=== PATIENT | male | born 1935 | race Caucasian/White ===

== ENCOUNTER → 2016-05-10 | Day surgery (SDC) | payer MEDICARE, BC ==
[~2016-05-10] MED LIST: Acetaminophen TAB* 325 MG PO PRN; Buffered Lidocaine 1% SYR 3ML* 3 ML/SYR SYRINGE INTRADERM ONE; Buffered Lidocaine 1% SYR 3ML* 3 ML/SYR SYRINGE ONE; Cyclopentolate 1% OPTH.SOL* 2 ML BTL ONE; Flurbiprofen 0.03% OPTH.SOL* 2.5 ML BTL ONE; Lidocaine 1% MPF* 2 ML VIAL ONE; Lidocaine 2% EPI 1:200000 MPF* 20 ML VIAL ONE; Midazolam* 1 MG/ML 2 ML VIAL (2 MG) ONE; Neomycin/Polymy/Dex OPTH.SUSP* MAXITROL 0.1% 5 ML ONE; Phenylephrine 2.5% OPTH.SOL* 2 ML BTL ONE; Povidone Iodine 5% OPTH* 30 ML BTL ONE; Proparacaine 0.5% OPHTH.SOL* 15 ML BTL ONE; acetaZOLAMIDE TAB* 250 MG ONE
[2016-05-10 11:18] VITALS: BP 115/61
--- NOTE | 2016-05-10 13:09 | OP ---
DATE OF OPERATION: 05/10/2016 - [facility] DATE OF : 1935. SURGEON: Guicho Lao M.D. PREOPERATIVE DIAGNOSIS: Cataract left eye. POSTOPERATIVE DIAGNOSIS: Cataract left eye. OPERATIVE PROCEDURE: Phacoemulsification left eye with IOL. DESCRIPTION OF PROCEDURE: The patient was brought to the operating room after being given 1/2% Alcaine with epinephrine drops in the preoperative area. The eye was prepped and draped in the usual sterile fashion. Sterile drape and eyelid speculum were placed. Again, topical 1/2% Alcaine with epinephrine was given. A paracentesis incision was made at the 3 o'clock position with the No.75 blade. Clear cornea incision 2.2 x 2.2-mm was created at the 6 o'clock position starting at the anterior limbus using the 2.2-mm keratome. The anterior chamber was irrigated with 0.4 mL of 1% non-preservative intracameral lidocaine and filled with DisCoVisc. A capsulorrhexis was completed using the cystotome and the Utrata forceps. Hydrodissection was performed with balanced salt solution. The lens nucleus was removed with the Phacoemulsification handpiece without incident. Cortex was removed with the irrigation-aspiration handpiece. The capsular bag was re-inflated using DisCoVisc and an [id number] implant was inserted with the shooter. The irrigation-aspiration handpiece was used to remove all residual DisCoVisc. The eye was refilled with balanced salt solution and the wound checked and found to be watertight. Topical Maxitrol drops were given. [id number]/[facility] #: [id number] [facility]
== END | disposition home or self-care (01) ==
LOC: OREAST 07:45
PROVIDERS: ATTEND Specialist
DX: H25.812 Combined forms of age-related cataract, left eye (principal); H18.423 Band keratopathy, bilateral; H35.371 Puckering of macula, right eye; I48.91 Unspecified atrial fibrillation; I34.8 Other nonrheumatic mitral valve disorders
CPT/HCPCS: A9270-GY; J2250; V2632

== ENCOUNTER 2016-12-12 07:36 | Inpatient (IN) | payer MEDICARE, BC ==
--- NOTE | 2016-11-29 12:01 | HP ---
HISTORY AND PHYSICAL: DATE OF ADMISSION/SURGERY: 12/12/16 DATE OF OFFICE VISIT: 11/29/16 SURGEON: Angélica Nazario MD * (DICTATED BY TG GUTIERREZ) PROCEDURE: Right total hip arthroplasty. CHIEF COMPLAINT: Right hip pain. HISTORY OF PRESENT ILLNESS: Mr. Mason has continued complaints of right hip pain secondary to advanced arthritis. He has failed conservative management, has elected to proceed with a right total hip arthroplasty, which is scheduled for 12/12/[address] Nazario. PAST MEDICAL HISTORY: A-Fib and a mild mitral valve murmur. PAST SURGICAL HISTORY: Tonsillectomy, teeth extraction, cataract removal. CURRENT MEDICATIONS: 1. Diltiazem 240 mg every day. 2. Nasal saline spray. 3. Colace. 5. Pretz nasal spray. 6. Calcium carbonate 600 mg daily. 7. Aspirin 325 daily. 8. Glucosamine/chondroitin. 9. Ponaris emulsion twice a day. 10. Advil 200 mg as needed. 11. Daily multivitamin. 12. Metamucil as needed. 13. Vitamin C 500 mg daily. ALLERGIES: AMOXICILLIN, BETA BLOCKERS, LEVAQUIN and DIGOXIN. FAMILY HISTORY: Lung cancer. SOCIAL HISTORY: This is an 81-year-old gentleman lives with his . He does not smoke or use drugs. He uses rare alcohol. REVIEW OF SYSTEMS: A complete 14-point review of systems was reviewed with the patient. It is all negative or noncontributory. PHYSICAL EXAMINATION GENERAL: He is well developed, well nourished, in no acute distress. VITAL SIGNS: He stands 5 feet 5 inches tall, weighs 145 pounds. His blood pressure is 123/76, his heart rate 81. HEENT: Normocephalic, atraumatic. NECK: Supple. No palpable lymph nodes. PULMONARY: Lungs are clear to auscultation bilaterally. CARDIO: Regular rate and rhythm. Strong S1, S2. ABDOMEN: Soft, nontender, nondistended. NEUROLOGICAL: He is alert and oriented x3. Cranial nerves II through XII are intact. MUSCULOSKELETAL: Right lower extremity, skin is intact. There are no open wounds or abrasions. He has decreased range of motion with internal and external rotation of the right hip and he walks with an antalgic type gait favoring his right leg. His lower extremity muscle group strengths are intact at 5/5. He has 2+ dorsalis pedis pulses. Intact sensation. ASSESSMENT AND PLAN: Mr. Mason is an 81-year-old gentleman with complaints of right hip pain secondary to advanced osteoarthritis. He has failed conservative management, has elected to proceed with right total hip arthroplasty, which is scheduled for 12/12/[address] Nazario has discussed the risks and benefits of the surgery at today's visits. All of his questions were answered. Coumadin and Percocet were sent to his pharmacy today for postoperative pain control and DVT prophylaxis. He will see Dr. Nazario back in 2 weeks after the surgery. TG GUTIERREZ [id number]/[facility] #: [id number] MTDD
[~2016-12-12 07:36] MED LIST changes: -Acetaminophen TAB* 325 MG PO PRN; +Buffered Lidocaine 0.9% SYRIN* 5 ML/SYR SYRINGE INTRADERM ONE; -Buffered Lidocaine 1% SYR 3ML* 3 ML/SYR SYRINGE INTRADERM ONE; -Buffered Lidocaine 1% SYR 3ML* 3 ML/SYR SYRINGE ONE; -Cyclopentolate 1% OPTH.SOL* 2 ML BTL ONE; +Famotidine IV* 10 MG/ML 2 ML (20 mg) IV ONE; -Flurbiprofen 0.03% OPTH.SOL* 2.5 ML BTL ONE; -Lidocaine 1% MPF* 2 ML VIAL ONE; -Lidocaine 2% EPI 1:200000 MPF* 20 ML VIAL ONE; -Midazolam* 1 MG/ML 2 ML VIAL (2 MG) ONE; -Neomycin/Polymy/Dex OPTH.SUSP* MAXITROL 0.1% 5 ML ONE; +PROCHLORPERAZINE INJ 5 MG/ML 2 ML VIAL IV PRN; -Phenylephrine 2.5% OPTH.SOL* 2 ML BTL ONE; -Povidone Iodine 5% OPTH* 30 ML BTL ONE; -Proparacaine 0.5% OPHTH.SOL* 15 ML BTL ONE; -acetaZOLAMIDE TAB* 250 MG ONE; +fentaNYL* 50 MCG/ML 2 ML VIAL (100 MCG VIAL) IV PRN; +oxyCODONE/Acetamin 5/325 MG* TAB PO PRN
[2016-12-12] MEDS ORDERED: Famotidine IV* 10 MG/ML 2 ML (20 mg) ONE (08:07)
[2016-12-12] MEDS ORDERED: Clindamycin 900 MG IVPREMIX(* 900 MG/50 ML SDV IV ONE (08:07)
[2016-12-12] MEDS ORDERED: Buffered Lidocaine 0.9% SYRIN* 5 ML/SYR SYRINGE ONE (08:08)
[2016-12-12] MEDS ORDERED: KETAMINE HCL* 50 MG/ML 10 ML VIAL ONE (08:54)
[2016-12-12] MEDS ORDERED: Midazolam* 1 MG/ML 5 ML VIAL (5 MG) ONE (08:54)
[2016-12-12] MEDS ORDERED: Atracurium* 10 MG/ML 10 ML VIAL ONE (08:54)
[2016-12-12] MEDS ORDERED: fentaNYL* 50 MCG/ML 2 ML VIAL (100 MCG VIAL) ONE (08:54)
[2016-12-12] MEDS ORDERED: Morphine INJ* 10 MG/ML 1 ML SYRINGE ONE (10:44)
[2016-12-12] MEDS ORDERED: Bupivacaine 0.5% SDV PF* 30 ML VIAL ONE (11:12)
[2016-12-12] MEDS ORDERED: Dexamethasone IV* 4 MG/ML 1 ML (4 MG) ONE (12:33)
[2016-12-12] MEDS ORDERED: Ondansetron INJ* 2 MG/ML VIAL ONE (12:33)
[2016-12-12] MEDS ORDERED: Propofol* 10 MG/ML 20 ML BTL IV PUSH ONE (12:33)
[2016-12-12] MEDS ORDERED: Phenylephrine INJ* 10 MG/ML 1 ML VIAL (10 MG) ONE (12:33)
[2016-12-12] MEDS ORDERED: Lidocaine 2% PF * 5 ML VIAL ONE (12:33)
[2016-12-12] MEDS ORDERED: diPHENhydraMINE PO* 25 MG PO PRN (12:39)
[2016-12-12] MEDS ORDERED: oxyCODONE TAB* 5 MG TAB PO PRN (12:39)
[2016-12-12] MEDS ORDERED: diPHENhydraMINE IV* 50 MG/ML 1 ml VIAL (BENADRYL) IV PRN (12:39)
[2016-12-12] MEDS ORDERED: Ondansetron TAB* 4 MG PO PRN (12:39)
[2016-12-12] MEDS ORDERED: Ondansetron INJ* 2 MG/ML VIAL IV PRN (12:39)
[2016-12-12] MEDS ORDERED: Morphine INJ* 10 MG/ML 1 ML SYRINGE IV PRN (12:39)
[2016-12-12] MEDS ORDERED: Polyethylene Glycol 3350* 17 GM PACKET PO PRN (12:45)
[2016-12-12] MEDS ORDERED: Bisacodyl SUPP* 10 MG SUPP PR PRN (12:45)
[2016-12-12] MEDS ORDERED: Oxymetazoline 0.05% NASAL SPR* 15 ML BTL BOTH NARES PRN (12:47)
[2016-12-12] MEDS ORDERED: oxyCODONE/Acetamin 5/325 MG* TAB PO PRN (12:53)
[2016-12-12] MEDS ORDERED: ceFAZolin 1 GM VIAL(*) 1 GM in NS 0.9% 50 ML* 50 ML IVPB SCH (13:00)
--- NOTE | 2016-12-12 13:28 | RAD ---
INDICATION: Right hip arthroplasty COMPARISON: October 26, 2016 TECHNIQUE: AP portable view of the right hip is submitted FINDINGS: There is initiation of right hip arthroplasty with placement of a femoral component for sizing. IMPRESSION: OPERATIVE CONTROL FILMS ARE SUBMITTED
[2016-12-12] MEDS ORDERED: Morphine INJ* 4 MG/ML 1 ML SYRINGE ONE (13:42)
[2016-12-12] MEDS ORDERED: oxyCODONE/Acetamin 5/325 MG* TAB ONE (13:42)
[2016-12-12] MEDS: Morphine INJ* 2 MG/ML 1 ML SYRINGE IV PRN ×2 (13:45→13:53)
--- NOTE | 2016-12-12 15:49 | RAD ---
Indication: Right hip replacement. 2 views of the right hip and an AP view the pelvis demonstrates right hip bipolar arthroplasty in satisfactory position. IMPRESSION: Postoperative changes with right hip replacement in satisfactory position.
--- NOTE | 2016-12-12 16:53 | CONS ---
CC: Dr. Crespo; Dr. Nazario * CONSULTATION REPORT: DATE OF CONSULT: 12/12/16 PRIMARY CARE PROVIDER: Dr. Crespo. ATTENDING PHYSICIAN WHILE IN THE HOSPITAL: Sharon Boo DO (report dictated by Bong Taylor NP). REQUESTING PHYSICIAN FOR CONSULT: Dr. Nazario. REASON FOR MEDICAL CONSULTATION: Evaluation and medical management of comorbid medical conditions. HISTORY OF PRESENT ILLNESS: I refer you to Dr. Nazario's H and P for further details. In short, Mr. Mason is an 81-year-old male patient who for some time has been dealing with right hip pain failing conservative therapy. He was evaluated by Dr. Nazario. Because the conservative therapy had failed, it was felt that he might benefit from an elective total hip replacement which he underwent today. He does carry though a history of mitral regurgitation and a history of atrial fibrillation. Because of this, we were asked to evaluate in consult. He is evaluated in the postoperative setting. He does not appear to be in any acute distress. He says he is feeling well. He denies having any chest pain. He denies having any abdominal pain. He says that he does not feel nauseated. He says he feels a little drowsy but no lightheaded or dizzy. He says he does have pain particularly in the right buttock and in the right hip but it is controlled with his pain medications. Again, because of his medical comorbid conditions, we were asked to evaluate in consult. PAST MEDICAL HISTORY: Significant for: 1. AFib. 2. Mitral regurgitation. 3. Hyperlipidemia. 4. BPH. 5. GERD. 6. Childhood asthma. PAST SURGICAL HISTORY: 1. He has had tonsillectomy. 2. Cataract extraction. 3. Right total hip replacement. MEDICATIONS: His home meds according to the preop list include: 1. Ponaris 1 dose both nares q.p.m. 2. Afrin 1 spray both nares daily as needed. 3. Nasal wash 1 solution 1 spray both nares b.i.d. 4. Multivitamin 1 tablet daily. 5. Vicks cough drops 1 lozenge p.o. 4 times a day. 6. Advil 400 mg p.o. daily as needed. 7. Glycerine 1 spray both nares at bedtime. 8. Glucosamine and chondroitin 2 tablets p.o. q.p.m. 9. Colace 100 mg p.o. q.p.m. 10. Diltiazem 240 mg p.o. daily. 11. Vicks VapoRub 1 application topically at bedtime. 12. Aspirin 325 mg p.o. daily. 13. Vitamin C 500 mg p.o. daily. ALLERGIES TO MEDICATIONS: Includes AMPICILLIN, LEVAQUIN, BETA-BLOCKERS, and DIGOXIN. FAMILY HISTORY: Mother had history of CVA at the age of 97. Father had a history of emphysema. SOCIAL HISTORY: She does not smoke, does not drink. Surrogate decision maker is his . REVIEW OF SYSTEMS: There is no documented fever. He denied having any significant weight change. There was no double vision. He denies having any ear discharge. There is no rhinorrhea. No sore throat, no thyroid enlargement. Denies having any chest pain. There is no orthopnea. No nocturnal dyspnea. There is no abdominal pain. There is no nausea, no vomiting. No dysuria, no frequency. No seizure. No loss of consciousness, no pruritus, no skin ulcerations. Review of 14 systems was completed, all others negative. PHYSICAL EXAMINATION: Vital Signs: Reveals blood pressure 135/75, pulse 61, respirations 18, O2 sat 100%, temperature 97.3. General: At this time, Mr. Mason is an 81-year-old male patient. He is sitting in the PACU bed. He does not appear to be in any acute distress. HEENT: Head atraumatic, normocephalic. Eyes: EOMs are intact. Sclerae anicteric. Neck: Supple. Throat: Oral mucosa appears to be moist. No oropharyngeal erythema. Heart: Sounds S1, S2. Irregularly irregular rate. No murmurs, rubs, or gallops. Lungs : Clear to auscultation bilaterally. No wheezes, rales, or rhonchi. Abdomen: Soft, flat. Bowel sounds hypoactive. Extremities: Pulses 2+ throughout. Distal CSM checks are intact to the right lower extremity. He is able to move the upper extremities with 5/5 strength. Neurologically, he is awake, he is alert. He is drowsy. Director Of Restaurants were equal. Tongue midline. No gross focal deficits. Speech is clear. Skin: Intact with the exception to the left hip, he does have an incision which is covered with an ABD which is clean, dry, and intact. DIAGNOSTIC STUDIES/LAB DATA: His labs preoperatively revealed WBC of 7.3, RBC of 4.57, hemoglobin 15.1, hematocrit of 44, platelet count of 175,000. INR was 0.91. Sodium 138, potassium 4.5, chloride 102, bicarb 31, BUN 18, creatinine 1.21, glucose 99. He had a preoperative echo which showed an EF of 60% to 65%. Old medical records were reviewed. ASSESSMENT AND PLAN: Mr. Mason is an 81-year-old male patient coming into the orthopedic services today for right total hip arthroplasty. We are asked to evaluate in consult. Recommendations at this point are: 1. Status post right total hip replacement. I will defer the management of this to Dr. Manning and her team. 2. Atrial fibrillation. Rate appears to be controlled. He is not on anticoagulation for this. He has been taking an aspirin. He will be placed on warfarin postoperatively, this should be acceptable. He has a low MARGARET score. 3. History of asthma, not an active issue. We will monitor. 4. History of mitral regurgitation. He will follow up with his primary. It does not appear to be active issue currently. We will monitor. 5. DVT prophylaxis. We will defer to the primary team. 6. Fluids, electrolytes, nutrition. He can have a regular diet. 7. Hyperlipidemia. Continue lifestyle modifications. 8. Code status. He is a full code status. TIME SPENT: Time spent on the consult was 60 minutes; greater than half that time was spent [id number] with the patient obtaining my history and physical, other half of the time was spent going over the plan of care with the patient, implementing my plan of care. I discussed the plan of care with my attending, Dr. Boo, she is in agreement. BONG TAYLOR NP [id number]/[facility] #: [id number] GELA
[2016-12-12] MEDS ORDERED: Warfarin TAB(*) 6 MG PO ONE (17:00)
[2016-12-12] MEDS: Clindamycin 600 MG IVPREMIX(* 600 MG/50 ML SDV IV SCH (18:20)
[2016-12-12] MEDS: Docusate CAP* 100 MG PO SCH (23:52)
[2016-12-12] MEDS: Magnesium Hydroxide LIQ* 30 ML UDC PO SCH (23:52)
[2016-12-13] MEDS: Clindamycin 600 MG IVPREMIX(* 600 MG/50 ML SDV IV SCH ×2 (02:40→10:36)
[2016-12-13] MEDS: oxyCODONE/Acetamin 5/325 MG* TAB PO PRN ×3 (04:25→22:13)
[2016-12-13 06:42] LABS: Hematocrit 34 % (42-52); Hemoglobin 11.6 g/dl (14.0-18.0)
[2016-12-13 06:58] LABS: BUN/Creatinine Ratio 13.8 (8-20); Calcium 8.5 mg/dL (8.6-10.3); EGFR African American 83.5 (>60); EGFR Non-African American 64.9 (>60); Potassium 4.2 mmol/L (3.5-5.0)
[2016-12-13] MEDS: Diltiazem CD CAP* 240 MG PO SCH (08:15)
[2016-12-13] MEDS ORDERED: Diltiazem CD CAP* 240 MG PO SCH (09:00)
[2016-12-13] MEDS ORDERED: Influenza VAC *QUAD* 2017-18* 0.5 ML SYRINGE IM ONE (09:00)
--- NOTE | 2016-12-13 09:11 | PN ---
Progress Note - Progress Note Date of Service: 12/13/16 SOAP: Subjective: []Patient seen at bedside, doing well, hip pain minimal. Denies SOB, CP or dizziness. Plans to go home with VNS by end of week. Objective: [] Vital Signs Temp 97.8 F 12/13/16 07:09 Pulse 65 12/13/16 07:09 Resp 16 12/13/16 08:14 BP 116/52 12/13/16 07:09 Pulse Ox 100 12/13/16 07:09 Intake & Output 12/12/16 12/13/16 12/13/16 18:59 06:59 18:59 Intake Total 1999 1886 Output Total 550 1150 Balance 1450 736 Weight 141 lb Intake: IV Fluids 1999 1006 ABX - CLINDAMYCIN 53 LR 1999 953 Oral 880 Output: Ro 350 1150 Estimated Blood Loss 200 Other: # Bowel Movements 0 Laboratory Results - last 24 hr 12/13/16 12/13/16 12/13/16 06:23 06:23 06:23 Hgb 11.6 L Hct 34 L INR (Anticoag Therapy) 1.32 H Sodium 137 Potassium 4.2 Chloride 102 Carbon Dioxide 29 Anion Gap 6 BUN 15 Creatinine 1.09 Est GFR ( Amer) 83.5 Est GFR (Non-Af Amer) 64.9 BUN/Creatinine Ratio 13.8 Glucose 149 H Calcium 8.5 L Right hip dressings are dry and intact, ice on +DF/PF right ankle sensation and circulation intact distally calf non tender and soft Assessment: []s/p right total hip arthroplasty POD #1 Plan: []PT/OT WBAT RLE Coumadin with Lovenox bridge- 6 mg today Home with VNS when goals met
[2016-12-13] MEDS: Multivitamins/Minerals TAB PO SCH (09:49)
[2016-12-13] MEDS: Ascorbic Acid TAB* 500 MG PO SCH (09:49)
[2016-12-13] MEDS: Nasal Wash (NF) 473 ML BTL NASAL SCH (09:49)
[2016-12-13] MEDS: Magnesium Hydroxide LIQ* 30 ML UDC PO SCH ×2 (09:50→22:15)
[2016-12-13] MEDS: Docusate CAP* 100 MG PO SCH ×2 (09:50→22:15)
--- NOTE | 2016-12-13 11:00 | OP ---
DATE OF SURGERY: 12/12/16 - ROOM #350 DATE OF : 35. ATTENDING SURGEON: Angélica Nazario MD. ESC[facility] PATIENTS: TG Garcia. Ms. Wilhelm did help throughout the procedure with preparation of the leg, wound retraction, manipulation of the hip, and wound closure. ANESTHESIOLOGIST: Dr. Herrera. ANESTHESIA: General. PRE-OP DIAGNOSIS: Severe endstage degenerative osteoarthritis of the right hip joint. POST-OP DIAGNOSIS: Severe endstage degenerative osteoarthritis of the right hip joint. OPERATIVE PROCEDURE: Right total hip arthroplasty. COMPLICATIONS: None. ESTIMATED BLOOD LOSS: 350 cc. SPECIMENS: Femoral head and acetabular reaming sent to Pathology. HARDWARE USED: This is uncemented [place] total hip hardware. For the cup, a 56 Tritanium cluster hole shell, 120 mm screw was used. For the liner, a Trident X3 0- degree 36E liner. For the femoral stem, an Accolade TMZF size 3 with 127-degree neck and for the head, a Biolox delta 36, -2.5 ceramic V40 femoral head. BRIEF HISTORY/INDICATIONS: Mr. Mason is an 81-year-old gentleman with years of increasingly severe right hip pain. Radiographs confirmed bone on bone severe endstage arthritis to the hip joint. He failed conservative treatment with antiinflammatories, pain medications, and physical therapy. Due to decreased quality of life and severe pain, he elected to undergo right total hip arthroplasty. Informed consent was obtained from the patient. He understood the risks of surgery included, but were not limited to bleeding, infection, damage to nearby structures, continued pain, need for further surgery, intraoperative fracture, dislocation, leg length discrepancy, stroke, heart attack, blood clot, and . He wished to proceed. INTRAOPERATIVE FINDINGS: Intraoperatively, the patient was noted to have complete loss of cartilage of the femoral head and acetabulum. Inferior acetabulum had significant osteophyte formation. DESCRIPTION OF PROCEDURE: Mr. Mason was identified in the preanesthesia unit. His right lower extremity was marked as the correct operative site. Informed consent was signed and placed in the chart. The patient was taken to the operating room and placed under general anesthesia. A Ro catheter was placed. Right lower extremity has been marked as a corrective operative site. He was placed in the left lateral decubitus position on the peg board with all bony prominences were well padded. Right lower extremity was prepped and draped in the usual sterile fashion. Preop time-out was made to correctly identify the patient, side, and site. Appropriate perioperative antibiotics were given within 1 hour of incision. A standard 12-cm posterior hip incision was made with a 10-blade and carried down to the lateral fascia layer. Lateral fascia layer was incised in line with the skin incision. A Charnley retractor was placed. The piriformis and conjoint tendons were identified. These were elevated off the posterolateral femur using electrocautery and tagged with two #5 Ethibond. Next, electrocautery was used to make a standard posterolateral capsular flap and this was also tagged with two #5 Ethibond. The hip was carefully dislocated. Lesser troch to center of the femoral head measured 50 mm. The oscillating saw was used to make the appropriate femoral neck cut based on preop templating. The femoral head was sent to pathology. The femur was carefully retracted anteriorly. After appropriate placement of retractors, the acetabulum was easily visualized. A long handled knife was used to sharply remove any remaining labrum from the acetabular rim. The acetabulum was sequentially reamed up to a size 55. A good bleeding subchondral bone bed was obtained. A 55 trial had excellent fit. Final implant chosen was a Tritanium hemispherical cluster hole shell 56E. This was impacted into the acetabulum without difficulty. One 20 mm screw was placed in superior posterior quadrant for extra stability. Polyethylene liner Trident X3 0-degree 36E was chosen and this was impacted into the acetabulum without difficulty. Stability of the liner was checked and rechecked and noted to be stable. Some inferior osteophytes were carefully removed from around the acetabulum using a rongeur. Attention was turned next to the femur. Canal finder was used to enter the proximal femur. The femur was sequentially broached up to a size 3. Size 3 had excellent fit and appropriate anteversion. A 127 neck trial was chosen based on templating. A 36, +0 head had lesser troch to center of the femoral head measurement of 56 mm; therefore, a 36, -2.5 head was chosen. The hip was easily reduced and taken through range of motion. The hip was stable in all positions. Soft tissue tension was appropriate and leg lengths were satisfactory. The hip was carefully dislocated. All trials were carefully removed. Final implant chosen was an Accolade TMZF size 3 with a 127-degree neck. This was carefully impacted into the femoral canal without difficulty. A Biolox delta ceramic femoral head 36, -2.5 was chosen. This was impacted onto the femoral neck. Lesser troch to the center of the femoral head measured 52 mm. The hip was carefully reduced and taken through range of motion. The hip was stable in all positions with appropriate soft tissue tension and leg length. The hip was copiously irrigated with sterile saline. Previously tagged capsule and tendons were reapproximated to the posterolateral femur through 2 trochanteric drill holes. The hip was once again copiously irrigated with sterile saline. The fascial layer was reapproximated using interrupted #1 Vicryls. The rest of the incision was closed in a layered fashion using 0 and 2- 0 Vicryl. The skin was closed using running 3-0 Monocryl suture with Dermabond. Sterile Adaptic, 4x4's, and paper tape were used to cover the incision. The patient's anesthesia was reversed without difficulty. He was taken to the PACU in stable condition. Intended weightbearing will be weightbearing as tolerated. Intended DVT prophylaxis will be Coumadin with a Lovenox bridge. [id number]/[facility] #: [id number] GELA
[2016-12-13] MEDS ORDERED: Enoxaparin(*) 30 MG/0.3 ML SYR SUBCUT SCH (13:00)
[2016-12-13] MEDS: Acetaminophen TAB* 325 MG PO PRN (13:01)
[2016-12-13] MEDS ORDERED: Warfarin TAB(*) 6 MG PO SCH (17:00)
--- NOTE | 2016-12-13 19:42 | PN ---
Subjective Date of Service: 12/13/16 Interval History: Seen POD #1 in follow up of medical co-management. Mr. Mason feels well today and denies pain. No post-op chest pain, shortness of breath, nausea, constipation, diarrhea. Family History: Unchanged from Admission Social History: Unchanged from Admission Past Medical History: Unchanged from Admission Objective Active Medications: Acetaminophen (Tylenol Tab*) 650 mg PO Q4H PRN PRN Reason: mild pain or fever Last Admin: 12/13/16 13:01 Dose: 650 mg Ascorbic Acid (Vitamin C Tab*) 500 mg PO DAILY [facility] Last Admin: 12/13/16 09:49 Dose: Not Given Bisacodyl (Dulcolax Supp*) 10 mg [place] DAILY PRN PRN Reason: constipation Diltiazem HCl (Cardizem Cd Cap*) 240 mg PO QAM [facility] Last Admin: 12/13/16 08:15 Dose: 240 mg Diphenhydramine HCl (Benadryl Iv*) 12.5 mg IV Q6H PRN PRN Reason: PRURITIS Diphenhydramine HCl (Benadryl Po*) 25 mg PO Q6H PRN PRN Reason: INSOMNIA Docusate Sodium (Colace Cap*) 100 mg PO BID [facility] Last Admin: 12/13/16 09:50 Dose: 100 mg Enoxaparin Sodium (Lovenox(*)) 30 mg SUBCUT Q24H [facility] Last Admin: 12/13/16 13:02 Dose: 30 mg Lactated Ringer's (Lactated Ringers 1000 Ml Bag*) 1,000 mls @ 100 mls/hr IV PER RATE [facility] Last Admin: 12/13/16 11:49 Dose: 100 mls/hr Lactulose (Lactulose*) 30 ml PO Q6H PRN PRN Reason: constipation Magnesium Hydroxide (Milk Of Magnesia Liq*) 30 ml PO BID [facility] Last Admin: 12/13/16 09:50 Dose: 30 ml Morphine Sulfate (Morphine Inj (Syringe)*) 5 mg IV Q2H PRN PRN Reason: PAIN Multivitamins/Minerals (Theragran/Minerals Tab*) 1 tab PO DAILY [facility] Last Admin: 12/13/16 09:49 Dose: Not Given Ondansetron HCl (Zofran Inj*) 4 mg IV Q6H PRN PRN Reason: nausea Last Admin: 12/12/16 18:24 Dose: 4 mg Ondansetron HCl (Zofran Tab*) 4 mg PO Q6H PRN PRN Reason: NAUSEA Oxycodone HCl (Roxycodone Tab*) 10 mg PO Q4H PRN PRN Reason: breakthru pain Oxycodone/Acetaminophen (Percocet 5/325 Tab*) 1 tab PO Q3H PRN PRN Reason: PAIN - MODERATE Last Admin: 12/13/16 08:14 Dose: 1 tab Oxycodone/Acetaminophen (Percocet 5/325 Tab*) 2 tab PO Q3H PRN PRN Reason: PAIN - MODERATE Oxymetazoline HCl (Afrin 0.05% Nasal [place]*) 1 spray BOTH NARES DAILY PRN PRN Reason: CONGESTION Pharmacy Profile Note (Coumadin Daily Reminder*) 1 note FOLLOW UP 1700 LC Last Admin: 12/13/16 17:08 Dose: 1 note Polyethylene Glycol/Electrolytes (Miralax*) 17 gm PO DAILY PRN PRN Reason: Constipation Thymol/Menthol (Alkalol (Nf)) 1 dose NASAL DAILY LC PRN Reason: Protocol Last Admin: 12/13/16 09:49 Dose: Not Given Vital Signs 12/12/16 12/12/16 12/12/16 20:23 20:35 23:44 Temperature 98.0 F 97.5 F Pulse Rate 73 70 Respiratory 12 12 16 Rate Blood Pressure 128/69 123/68 (mmHg) O2 Sat by Pulse 100 100 Oximetry 12/13/16 12/13/16 12/13/16 03:21 04:25 06:21 Temperature 97.7 F Pulse Rate 63 Respiratory 16 16 16 Rate Blood Pressure 104/47 (mmHg) O2 Sat by Pulse 100 Oximetry 12/13/16 12/13/16 12/13/16 07:09 08:00 08:14 Temperature 97.8 F Pulse Rate 65 Respiratory 16 18 16 Rate Blood Pressure 116/52 (mmHg) O2 Sat by Pulse 100 100 Oximetry 12/13/16 12/13/16 12/13/16 10:14 11:23 15:22 Temperature 98.4 F 98.0 F Pulse Rate 79 61 Respiratory 16 16 13 Rate Blood Pressure 104/53 96/49 (mmHg) O2 Sat by Pulse 99 98 Oximetry 12/13/16 15:27 Temperature Pulse Rate Respiratory Rate Blood Pressure (mmHg) O2 Sat by Pulse 98 Oximetry Oxygen Devices in Use Now: None Appearance: alert, well-appearing Eyes: No Scleral Icterus, PERRLA Ears/Nose/Mouth/Throat: NL Teeth, Lips, Gums, Clear Oropharnyx Neck: NL Appearance and Movements; NL JVP Respiratory: Symmetrical Chest Expansion and Respiratory Effort, Clear to Auscultation Cardiovascular: NL Sounds; No Murmurs; No JVD, RRR Abdominal: NL Sounds; No Tenderness; No Distention, No Hepatosplenomegaly Lymphatic: No Cervical Adenopathy Extremities: No Edema Skin: No Rash or Ulcers Neurological: Alert and Oriented x 3 Result Diagrams: 12/13/16 06:23 12/13/16 06:23 Assess/Plan/Problems-Billing Assessment: 1. POD #1 R total hip arthroplasty No post-op chest pain, tolerating pain, discussed avoiding NSAIDs while on AC 2. Afib [id number], so it is appropriate that he takes on aspirin at home. ASA can be held while on therapeutic AC. When resumed, only ASA 81mg is indicated, no need for 325mg. I discussed this with Mr. Mason. 3. Mitral regurgitation No evidence of volume overload.
[2016-12-14 06:54] LABS: Hematocrit 31 % (42-52); Hemoglobin 10.7 g/dl (14.0-18.0)
[2016-12-14] MEDS: Magnesium Hydroxide LIQ* 30 ML UDC PO SCH ×2 (08:43→20:00)
[2016-12-14] MEDS: Docusate CAP* 100 MG PO SCH ×2 (08:44→20:00)
[2016-12-14] MEDS: Diltiazem CD CAP* 240 MG PO SCH (08:44)
[2016-12-14] MEDS: Nasal Wash (NF) 473 ML BTL NASAL SCH (08:47)
[2016-12-14] MEDS: Multivitamins/Minerals TAB PO SCH (08:47)
[2016-12-14] MEDS: Ascorbic Acid TAB* 500 MG PO SCH (08:47)
--- NOTE | 2016-12-14 09:45 | PN ---
Progress Note - Progress Note Date of Service: 12/14/16 SOAP: Subjective: []Patient is seen at bedside, feeling "wiped out" from the Percocet he took a little while ago. He plans on going home tomorrow. Objective: [] Vital Signs Temp 97.3 F 12/14/16 07:22 Pulse 69 12/14/16 08:28 Resp 12 12/14/16 08:28 BP 113/56 12/14/16 08:28 Pulse Ox 99 12/14/16 08:28 Intake & Output 12/13/16 12/14/16 12/14/16 18:59 06:59 18:59 Intake Total 2046 1684 360 Output Total 875 575 200 Balance 1171 1109 160 Intake: IV Fluids 1071 964 ABX - CLINDAMYCIN 110 LR 961 964 Oral 975 720 360 Output: Urine 300 575 200 Ro 575 Other: # Bowel Movements 0 Laboratory Results - last 24 hr 12/14/16 12/14/16 06:05 06:05 Hgb 10.7 L Hct 31 L INR (Anticoag Therapy) 2.41 H Right hip dressing change, spotty ecchymosis around incision, minimal edema, wound benign new 4x4s and tape applied calf NT and soft +DF/PF right ankle sensation intact Assessment: []s/p Right total hip arthrplasty POD #2 Plan: []PT/OT WBAT Hold Coumadin today Home with VNS 12/15
[2016-12-14] MEDS: Acetaminophen TAB* 325 MG PO PRN ×3 (12:39→21:44)
--- NOTE | 2016-12-14 15:43 | PN ---
Subjective Date of Service: 12/14/16 Interval History: This is an 81 yo gentleman with afib and MR who is s/p YARED with Dr Nazario. Hospitalist group has been consulted for medical management. Patient reports that he had too much pain medication this am and was somewhat confused, but that has since resolved. Pain is well controlled. No n/v. No CP or SOB Objective Active Medications: Acetaminophen (Tylenol Tab*) 650 mg PO Q4H PRN PRN Reason: mild pain or fever Last Admin: 12/14/16 12:39 Dose: 650 mg Ascorbic Acid (Vitamin C Tab*) 500 mg PO DAILY [facility] Last Admin: 12/14/16 08:47 Dose: Not Given Bisacodyl (Dulcolax Supp*) 10 mg NM DAILY PRN PRN Reason: constipation Diltiazem HCl (Cardizem Cd Cap*) 240 mg PO QAM [facility] Last Admin: 12/14/16 08:44 Dose: 240 mg Diphenhydramine HCl (Benadryl Iv*) 12.5 mg IV Q6H PRN PRN Reason: PRURITIS Diphenhydramine HCl (Benadryl Po*) 25 mg PO Q6H PRN PRN Reason: INSOMNIA Docusate Sodium (Colace Cap*) 100 mg PO BID [facility] Last Admin: 12/14/16 08:44 Dose: 100 mg Lactulose (Lactulose*) 30 ml PO Q6H PRN PRN Reason: constipation Last Admin: 12/14/16 15:20 Dose: 30 ml Magnesium Hydroxide (Milk Of Magnesia Liq*) 30 ml PO BID [facility] Last Admin: 12/14/16 08:43 Dose: 30 ml Morphine Sulfate (Morphine Inj (Syringe)*) 5 mg IV Q2H PRN PRN Reason: PAIN Multivitamins/Minerals (Theragran/Minerals Tab*) 1 tab PO DAILY [facility] Last Admin: 12/14/16 08:47 Dose: Not Given Ondansetron HCl (Zofran Inj*) 4 mg IV Q6H PRN PRN Reason: nausea Last Admin: 12/12/16 18:24 Dose: 4 mg Ondansetron HCl (Zofran Tab*) 4 mg PO Q6H PRN PRN Reason: NAUSEA Oxycodone HCl (Roxycodone Tab*) 10 mg PO Q4H PRN PRN Reason: breakthru pain Oxycodone/Acetaminophen (Percocet 5/325 Tab*) 1 tab PO Q3H PRN PRN Reason: PAIN - MODERATE Last Admin: 12/13/16 22:13 Dose: 1 tab Oxycodone/Acetaminophen (Percocet 5/325 Tab*) 2 tab PO Q3H PRN PRN Reason: PAIN - MODERATE Last Admin: 12/14/16 07:44 Dose: 2 tab Oxymetazoline HCl (Afrin 0.05% Nasal [place]*) 1 spray BOTH NARES DAILY PRN PRN Reason: CONGESTION Pharmacy Profile Note (Coumadin Daily Reminder*) 1 note FOLLOW UP 1700 LC Last Admin: 12/13/16 17:08 Dose: 1 note Polyethylene Glycol/Electrolytes (Miralax*) 17 gm PO DAILY PRN PRN Reason: Constipation Thymol/Menthol (Alkalol (Nf)) 1 dose NASAL DAILY LC PRN Reason: Protocol Last Admin: 12/14/16 08:47 Dose: Not Given Vital Signs: Temp Pulse Resp BP Pulse Ox 98.3 F 73 14 118/61 100 12/14/16 12:06 12/14/16 12:06 12/14/16 12:06 12/14/16 12:06 12/14/16 12:06 Oxygen Devices in Use Now: None Appearance: Well appearing elderly gentleman in NAD, accompanied by his and appears younger than stated age. Respiratory: Symmetrical Chest Expansion and Respiratory Effort, Clear to Auscultation Cardiovascular: NL Sounds; No Murmurs; No JVD, RRR Extremities: No Edema Skin: No Rash or Ulcers Neurological: Alert and Oriented x 3 Result Diagrams: 12/14/16 06:05 12/13/16 06:23 Assess/Plan/Problems-Billing Assessment: This is an 81 yo gentleman with MR and afib who is s/p YARED with Dr Nazario. Hospitalist group has been asked to co-manage medical problems. - Patient Problems (1) S/P total hip arthroplasty Comment: POD #2 Management per ortho (2) Atrial fibrillation Comment: [id number], so it is appropriate that he takes only aspirin at home. ASA can be held while on therapeutic AC. When resumed, only ASA 81mg is indicated, no need for 325mg. (3) Mitral regurgitation (4) Full code status (5) DVT prophylaxis Comment: Coumadin per ortho Status and Disposition: Dispo per ortho, plans for dc home tomorrow
[2016-12-15] MEDS: Acetaminophen TAB* 325 MG PO PRN ×2 (02:10→08:29)
[2016-12-15 08:12] LABS: Hematocrit 34 % (42-52); Hemoglobin 11.5 g/dl (14.0-18.0)
[2016-12-15] MEDS: Nasal Wash (NF) 473 ML BTL NASAL SCH (08:21)
[2016-12-15] MEDS: Diltiazem CD CAP* 240 MG PO SCH (08:29)
[2016-12-15] MEDS: Multivitamins/Minerals TAB PO SCH (08:29)
[2016-12-15] MEDS: Ascorbic Acid TAB* 500 MG PO SCH (08:41)
[2016-12-15] MEDS: Magnesium Hydroxide LIQ* 30 ML UDC PO SCH (08:41)
[2016-12-15] MEDS: Docusate CAP* 100 MG PO SCH (08:41)
--- NOTE | 2016-12-15 09:55 | PN ---
Progress Note - Progress Note Date of Service: 12/15/16 SOAP: Subjective: []Patient seen at bedside, present. He is feeling well and feels ready for discharge this afternoon. Objective: [] Vital Signs Temp 98.4 F 12/15/16 07:39 Pulse 74 12/15/16 07:39 Resp 18 12/15/16 07:39 BP 137/54 12/15/16 07:39 Pulse Ox 100 12/15/16 07:39 Intake & Output 12/14/16 12/15/16 12/15/16 18:59 06:59 18:59 Intake Total 1060 980 Output Total 400 750 Balance 660 230 Intake: Oral 1060 980 Output: Urine 400 750 Other: Estimated Void Small Medium # Bowel Movements 1 2 Estimated Stool Amount Medium Medium # Voids 2 1 Laboratory Results - last 24 hr 12/15/16 12/15/16 07:11 07:11 Hgb 11.5 L Hct 34 L INR (Anticoag Therapy) 2.00 H Right hip incision is benign calf NT and soft +DF/Pf right ankle NVI distally Assessment: []s/p RTH POD #3 Plan: []PT/OT WBAT 2 mg Coumadin today before discharge Follow up as scheduled 10-[address] Nazario
[2016-12-15 12:38] VITALS: BP 120/54
--- NOTE | 2016-12-15 16:13 | PN ---
Hospitalist Progress Note Patient was discharged earlier today by orthopedic group. Nursing notes, vitals and labs reviewed prior to dc. Recommend resuming ASA following completion of Coumadin at a dose of 81mg. This has been reviewed with patient. No additional changes to home medications. Vital Signs: Temp Pulse Resp BP Pulse Ox 98.0 F 75 18 120/54 100 12/15/16 12:37 12/15/16 12:37 12/15/16 12:37 12/15/16 12:37 12/15/16 12:37
[2016-12-15] MEDS ORDERED: Warfarin TAB(*) 2 MG PO NR (17:00)
--- NOTE | 2016-12-16 01:19 | DS ---
DISCHARGE SUMMARY: DATE OF ADMISSION: 12/12/16 DATE OF DISCHARGE: 12/15/16 ATTENDING PHYSICIAN: Dr. Angélica Nazario * (DICTATED BY TG TOMLINSON) ADMISSION DIAGNOSIS: Severe end-stage degenerative osteoarthritis, right hip. DISCHARGE DIAGNOSIS: Severe end-stage degenerative osteoarthritis, right hip. SURGERY PERFORMED: Right total hip arthroplasty. HOSPITAL COURSE: The patient is an 81-year-old male with increasingly right severe hip pain. His x-rays revealed [id number] severe degenerative end- stage osteoarthritis. The patient failed conservative management with anti- inflammatories, pain medications, and physical therapy. He elected to proceed with total hip arthroplasty and was taken to the operating room under the care of Dr. Angélica Nazario on the date of 12/12/16. He tolerated the procedure well and left the operating room in stable condition. Postoperatively, he progressed satisfactorily with his physical therapy and occupational therapy goals. He was followed by the medical team as well and had no significant postoperative complications. He progressed nicely and it was felt that he was stable medically and orthopedically for discharge to home with visiting nursing services in place on 12/15/16. CONDITION ON DISCHARGE: His vitals show a temperature of 98.4, pulse 74, respiratory rate 18, O2 sats 100% on room air, blood pressure 137/54. His right hip incision shows no drainage, there is minimal swelling, no evidence of infection. His calf is nontender and soft. He has active dorsiflexion and plantar flexion of his right ankle. His circulation and sensation are intact distally. PLAN: The patient is scheduled for discharge to home with visiting nursing services in place on 12/15/16. The patient is going to have a 2 mg of Coumadin dosed today 12/15/16 before discharge home. I have instructed him to take no Coumadin on Saturday 12/16 and 2 mg of Coumadin on Sunday, 12/17. He will then have a repeat INR blood draw on Sunday with dosages to follow. He will follow up in the office as scheduled in 10 to [address] Nazario and should call the office with increased right hip pain or swelling and he noted drainage, redness, calf pain or swelling, fever, chills. All instructions were reviewed and the patient and his understood. TG TOMLINSON [id number]/[facility] [place] #: [id number] GELA
== END 2016-12-15 13:50 | disposition home health service (06) | DRG 470 ==
LOC: AA 07:36 → SSU 14:54
PROVIDERS: ADMIT Orthopaedic Surgery Adult Reconstructive Orthopaedic Surgery; ATTEND Orthopaedic Surgery Adult Reconstructive Orthopaedic Surgery
PROC: 0SR904A Replacement of Right Hip Joint with Ceramic on Polyethylene Synthetic Substitute, Uncemented, Open Approach (ICD-10-PCS; principal; 2016-12-12 10:15)
PROC: 3E0234Z Introduction of Serum, Toxoid and Vaccine into Muscle, Percutaneous Approach (ICD-10-PCS; 2016-12-13)
DX: M16.11 Unilateral primary osteoarthritis, right hip (principal); I48.91 Unspecified atrial fibrillation; I34.0 Nonrheumatic mitral (valve) insufficiency; N40.0 Benign prostatic hyperplasia without lower urinary tract symptoms; K21.9 Gastro-esophageal reflux disease without esophagitis; E78.5 Hyperlipidemia, unspecified; M25.751 Osteophyte, right hip; J45.909 Unspecified asthma, uncomplicated; Z80.1 Family history of malignant neoplasm of trachea, bronchus and lung; Z72.89 Other problems related to lifestyle; Z98.49 Cataract extraction status, unspecified eye; Z88.1 Allergy status to other antibiotic agents; Z88.8 Allergy status to other drugs, medicaments and biological substances; Z82.3 Family history of stroke; Z82.5 Family history of asthma and other chronic lower respiratory diseases; Z23 Encounter for immunization
CPT/HCPCS: 36415; 80048; 85014; 85018; 85610; 90686; 93005; 94760; A9270-GY; C1713; C1776; J1100; J1650; J2250; J2270; J2405; J2704; J3010

== ENCOUNTER 2017-03-13 08:56 | Emergency (ER) | payer MEDICARE, BC ==
[2017-03-13 09:15] VITALS: BP 135/67
--- NOTE | 2017-03-13 10:37 | UC ---
Neck Pain HPI - HPI Summary HPI Summary: FEVER HEADACHE AND NECK STIFFNESS ( PAIN & NUCHAL RIGIDITY WITH FLEXION) WORSENING SINCE 03/10/17. BEGAN WITH UPPER RESPIRATORY INFECTION ON 02/21/17, SYMPTOMS RESOLVED BUT DEVELOPED BACK PAIN AND LEFT SHOULDER PAIN. NO HAVING CONSTANT NECK PAIN WORSE WITH MOVEMENT. NO TRAUMA. - History of Current Complaint Chief Complaint: UCBackPain Stated Complaint: NECK PAIN Time Seen by Provider: 03/13/17 10:15 Hx Obtained From: Patient, Family/[employer] Onset/Duration Of Injury/Symptoms: Days Onset/Duration: Gradual Onset, Lasting Days, Worse Since - 03/10/17. Severity: Severe Location: Discrete At: Character: Stiff Aggravating Factors: Movement Associated Signs & Symptoms: Positive: Fever, Nuchal Rigity, Headache - Risk Factors Meningitis Risk Factors: Negative - Allergies/Home Medications Allergies/Adverse Reactions: Allergies Allergy/AdvReac Type Severity Reaction Status Date / Time Digoxin Allergy Mild Joint Pain Verified 12/12/16 16:30 Ampicillin Allergy Vomiting Verified 12/12/16 08:12 Levofloxacin [From Levaquin] Allergy "affects Verified 12/12/16 08:12 tendons" betablockers Allergy Mild See Comment Uncoded 12/12/16 16:30 PMH/Surg Hx/FS Hx/Imm Hx Previously Healthy: Yes - Surgical History Surgical History: Yes Surgery Procedure, Year, and Place: YASIR Lombardo tonsillectomy. 2010 [facility] EYE CATARACT [facility]. Right Total Hip Replacement 12/12/16 - Family History Known Family History: Positive: None - Social History Occupation: Retired Lives: With Family Alcohol Use: Rare Alcohol Amount: 1-2 GLASSES WINE EVERY FEW MONTHS Substance Use Type: None Smoking Status (MU): Never Smoked Tobacco Have You Smoked in the Last Year: No - Immunization History Most Recent Influenza Vaccination: 12/2016 Most Recent Pneumonia Vaccination: HAS HAD Review Of Systems Constitutional: Positive: Fever Skin: Positive: Negative Eyes: Positive: Negative ENT: Positive: Negative Respiratory: Positive: Negative Cardiovascular: Positive: Negative Gastrointestinal: Positive: Negative Genitourinary: Positive: Negative Musculoskeletal: Positive: Arthralgia, Myalgia Neurological: Positive: Headache Psychological: Positive: Negative All Other Systems Reviewed And Are Negative: No Physical Exam Triage Information Reviewed: Yes Appearance: Well-Nourished, Pain Distress Vital Signs: Initial Vital Signs Temp 99.0 F 03/13/17 09:07 Pulse 94 03/13/17 09:07 Resp 16 03/13/17 09:07 BP 135/67 03/13/17 09:07 Pulse Ox 99 03/13/17 09:07 Vital Signs Reviewed: Yes Eye Exam: Normal ENT Exam: Normal ENT: Positive: Normal ENT inspection, Hearing grossly normal, Pharynx normal Dental Exam: Normal Neck: Positive: Nontender, No Lymphadenopathy, Nuchal Rigidity, Other: - POSITIVE KERNIGS Respiratory Exam: Normal Respiratory: Positive: Chest non-tender, Lungs clear, Normal breath sounds, No respiratory distress, No accessory muscle use Cardiovascular Exam: Normal Cardiovascular: Positive: RRR, No Murmur, Pulses Normal, Brisk Capillary Refill Abdominal Exam: Normal Musculoskeletal Exam: Normal Musculoskeletal: Positive: Strength Intact, ROM Intact, No Edema Neurological Exam: Normal Psychological Exam: Normal Skin Exam: Normal Neck Pain Course/Dx - Course Course Of Treatment: PATIENT ADVISED TO SEEK HIGHER LEVEL OF CARE AT EMERGENCY DEPARTMENT. PATIENT REFUSED THE OFFER OF AMBULANCE TRANSPORT AND ELECTED TO GO TO THE EMERGENCY DEPARTMENT BY PRIVATE CAR. - Differential Dx/Diagnosis Differential Dx/HQI/PQRI: Meningitis, Sprain, Strain, Torticollis Provider Diagnoses: FEVER; NUCHAL RIGIDITY; URI - Physician Notification/Consults Instructed by Provider To: MD Will See In ED Discharge - Discharge Plan Condition: Stable Disposition: OTHER Discharge Disposition Comment: ADVISED TO GO TO ED, REFUSED AMBULANCE Patient Education Materials: Neck Pain (ED) Referrals: Amparo Crespo MD [Primary Care Provider] - Additional Instructions: YOU HAVE REFUSED THE OFFER OF AMBULANCE TRANSPORT AND HAVE ELECTED TO GO TO THE EMERGENCY DEPARTMENT BY PRIVATE CAR. YOU ARE ADVISED TO PROCEED SAFELY, BUT DIRECTLY TO THE EMERGENCY DEPARTMENT FOR CONTINUED EVALUATION.
== END 2017-03-13 10:31 ==
LOC: UCEAST 08:56
DX: R50.9 Fever, unspecified (principal); R29.1 Meningismus; J06.9 Acute upper respiratory infection, unspecified; Z96.641 Presence of right artificial hip joint; Z88.1 Allergy status to other antibiotic agents
CPT/HCPCS: 99212; G0463

== ENCOUNTER 2017-03-13 10:52 | Observation (INO) | payer MEDICARE, BC ==
[2017-03-13] MEDS ORDERED: Diazepam TAB(*) 5 MG PO ONE (12:31)
--- NOTE | 2017-03-13 13:04 | RAD ---
HISTORY: Fever COMPARISONS: October 31, 2012 VIEWS: 1: frontal portable view of the chest at 12:43 PM FINDINGS: LINES AND TUBES: None. CARDIOMEDIASTINAL SILHOUETTE: The cardiomediastinal silhouette is normal for portable technique. PLEURA: The costophrenic angles are sharp. No pleural abnormalities are noted. LUNG PARENCHYMA: The lungs are clear. ABDOMEN: The upper abdomen is clear. There is no subphrenic gas. BONES AND SOFT TISSUES: No bone or soft tissue abnormalities are noted. IMPRESSION: NO ACTIVE CARDIOPULMONARY DISEASE.
[2017-03-13 13:11] LABS: Hematocrit 36 % (42-52); Hemoglobin 12.1 g/dl (14.0-18.0); Mean Corpuscular HGB Conc 34 g/dl (31-36); Mean Corpuscular Hemoglobin 32 pg (27-31); Mean Corpuscular Volume 94 fL (80-94); Mean Platelet Volume 9 um3 (7.4-10.4); Red Blood Count 3.79 10^6/ul (4.0-5.4); Red Cell Distribution Width 14 % (10.5-15); White Blood Count 9.3 10^3/ul (3.5-10.8)
[2017-03-13 13:25] LABS: BUN/Creatinine Ratio 14.6 (8-20); C Reactive Protein 191.28 mg/L (< 5.00); Calcium 9.5 mg/dL (8.6-10.3); EGFR African American 89.1 (>60); EGFR Non-African American 69.3 (>60); Globulin 3.5 g/dL (2-4); Total Bilirubin 0.8 mg/dL (0.2-1.0); Total Protein 7.5 g/dL (6.4-8.9); Troponin I 0.01 ng/mL (<0.04)
[2017-03-13] MEDS ORDERED: cefTRIAXone(*) 2 GM in NS 0.9% 100 ML* 100 ML IVPB ONE (13:35)
[2017-03-13] MEDS ORDERED: Vancomycin(*) 1,500 MG in NS 0.9% 250 ML* 250 ML IVPB ONE (13:35)
[2017-03-13] MEDS ORDERED: Iohexol 300* (CONTRAST) 10 ML SDV IV ONE (13:39)
[2017-03-13] MEDS ORDERED: Morphine INJ* 2 MG/ML 1 ML CARPUJECT IV ONE ×2 (13:39→19:53)
[2017-03-13] MEDS ORDERED: Ondansetron INJ* 2 MG/ML VIAL IV ONE (13:39)
[2017-03-13] MEDS ORDERED: Morphine INJ* 2 MG/ML 1 ML SYRINGE (TWO MG - NEW SYRINGE VERSION) ONE (13:56)
[2017-03-13 14:25] LABS: Erythrocyte Sed Rate 91 mm/Hr (0-40)
--- NOTE | 2017-03-13 14:32 | RAD ---
Indication: Fever, headaches. CT of the brain was performed without IV contrast Ventricular structures are midline. No midline shift is noted. The extra-axial spaces are unremarkable. There is no evidence of mass or hemorrhage. No other high or low density lesions are identified. IMPRESSION: No discrete mass or hemorrhage is noted.
--- NOTE | 2017-03-13 14:38 | RAD ---
HISTORY: Fever, painful swallowing, neck pain COMPARISONS: None TECHNIQUE: Multiple contiguous axial CT scans were obtained of the neck after the administration of nonionic intravenous contrast, with coronal and sagittal multiplanar reformations. FINDINGS: Evaluation is limited by suboptimal contrast opacification. BRAIN AND ORBITS: The visualized brain and orbits are normal. PARANASAL SINUSES: There is mucosal thickening of ethmoid air cells. SALIVARY GLANDS: The parotid glands, submandibular glands, sublingual glands are normal. NASAL CAVITY/NASOPHARYNX: The nasal cavity and nasopharynx are normal. ORAL CAVITY/OROPHARYNX: The oral cavity is obscured by streak artifact from dental amalgam. The visualized oral cavity and oropharynx are unremarkable. LARYNGEAL APPARATUS/HYPOPHARYNX: The laryngeal apparatus and hypopharynx are normal. UPPER AIRWAY/UPPER ESOPHAGUS: The visualized upper airway and esophagus are normal. LUNG APICES: The lung apices are clear. THYROID GLAND: The thyroid gland is atrophic LYMPH NODES: There is no lymphadenopathy by size criteria. VASCULATURE: The left vertebral artery is diminutive. BONES AND SOFT TISSUES: Degenerative changes are noted of the spine. There is multilevel bridging anterolateral marginal osteophyte formation suggestive of diffuse idiopathic skeletal hyperostosis. OTHER: None. IMPRESSION: NO LOCULATED FLUID COLLECTION TO SUGGEST ABSCESS. NO INFLAMMATORY CHANGE OF THE NECK INCLUDING OF THE PHARYNX OR LARYNGEAL APPARATUS.
[2017-03-13] MEDS ORDERED: Morphine INJ* 4 MG/ML 1 ML CARPUJECT IV ONE (15:19)
[2017-03-13] MEDS ORDERED: NS 0.9% IVPB SCH (16:00)
[2017-03-13] MEDS ORDERED: ACYCLOVIR IVPB SCH (16:00)
[2017-03-13] MEDS ORDERED: NS 0.9% 250 ML* 250 ML ONE ×2 (16:29→16:32)
[2017-03-13] MEDS ORDERED: Vancomycin 1500 MG IV - x ONCE IVPB ONE ×2 (16:30)
[2017-03-13] MEDS ORDERED: Ketorolac INJ* 30 MG/ML 1 ML VIAL IV PUSH ONE (17:39)
[2017-03-13] MEDS ORDERED: HYDROmorphone INJ* 2 MG/ML CARPUJECT SYRINGE IV SLOW PU ONE (17:39)
[2017-03-13] MEDS ORDERED: Acetaminophen TAB* 325 MG PO PRN (19:39)
[2017-03-13] MEDS ORDERED: Morphine INJ* 2 MG/ML 1 ML SYRINGE (TWO MG - NEW SYRINGE VERSION) IV PRN (19:39)
[2017-03-13] MEDS ORDERED: Cyclobenzaprine TAB* 10 MG PO PRN (19:39)
[2017-03-13] MEDS ORDERED: NS 0.9% 1000 ML* 1,000 ML IV SCH (19:45)
[2017-03-13] MEDS ORDERED: LORazepam INJ* 2 MG/ML 1 ML VIAL IV PUSH ONE (19:53)
[2017-03-13] MEDS ORDERED: Oxymetazoline 0.05% NASAL SPR* 15 ML BTL BOTH NARES PRN ×2 (19:58→20:36)
[2017-03-13] MEDS ORDERED: Oxymetazoline 0.05% NASAL SPR* 15 ML BTL BOTH NARES ONE (19:58)
[2017-03-13] MEDS ORDERED: Oxymetazoline 0.05% NASAL SPR* 15 ML BTL ONE (20:00)
[2017-03-13] MEDS ORDERED: Vancomycin per Pharmacy* NOTE FOLLOW UP PRN (20:00)
[2017-03-13 20:02] LABS: Urine Bilirubin Negative (Negative); Urine Glucose Negative (Negative); Urine Nitrite Negative (Negative)
--- NOTE | 2017-03-13 20:37 | PN ---
Progress Note - Progress Note Date of Service: 03/13/17 Note: I was asked by ER to attempt LP to r/o meningitis after 2 failed attempts previously. I interviewed patient and began an exam, but the patient found that even lowering his head by one inch was very painful. I described repeat attempts at LP with patient and offered sedation. The patient refused any further attempt at LP. I informed him and his family that I or one of my partners would be happy to do LP with or without sedation if he changed his mind.
--- NOTE | 2017-03-13 21:44 | RAD ---
Indication: Neck pain. Image sequences: Sagittal T1, T2, STIR, axial T1 and T2-weighted images of the lumbar spine were obtained. 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 Bone marrow signal is within normal limits. At C2-C3 there is no disc protrusion. No central or foraminal stenosis is noted. At C4-C5 spondylitic ridge flattens the thecal sac. Small central disc protrusion indents the ventral spinal cord. There is left uncovertebral hypertrophy with left foraminal stenosis level. At C5-C6 no focal protrusion is noted. Spondylitic ridge flattens the thecal sac. Left uncovertebral hypertrophy narrows the left foramen. At C6-C7 spondylitic ridge flattens the thecal sac. Small to moderate central disc protrusion indents the spinal cord. No foraminal stenosis is noted. No definite evidence of epidural abscess is noted. No epidural masses are otherwise noted aside from the disc protrusions at C4-C5 and C6-C7. IMPRESSION: No evidence of epidural abscess is noted. C4-C5 spondylitic ridge, small central disc protrusion indents the thecal sac left foraminal stenosis. At C6-C7 spondylitic ridge with small central protrusion indents the thecal sac and spinal cord.
--- NOTE | 2017-03-13 22:50 | ED ---
Edward García Nilda, scribed for Brent Blair MD on 03/13/17 at 1211 . Neck Pain - HPI Summary HPI Summary: This patient is an 81 year old M presenting from [facility] to [facility] accompanied by with a chief complaint of constant sharp neck martinez for the past 2 days. Pt was sent from [facility] to r/o meningitis. Last week, pt states he felt pain in bilat shoulder blades that traveled to neck. Neck pain and stiffness is still present though shoulder pain has resolved. The patient rates the pain 6/10 in severity while at rest. Symptoms aggravated by movement and alleviated by rest. Pt states he attempted to treat pain with aspirin, ibuprofen, and oxycodone from prior hip surgery. Patient reports CP, dyspnea, fever (99F), chills, sore throat, and difficulty with swallowing that involves the whole neck. Patient denies tingling and numbness in bilat UE. Per , in the last week and a half pt had a severe cold which has mostly resolved. Pt denies blood thinners and overly strenuous exercise. PSHx recent hip replacement. No PSHx back surgery. No PMHx neck problems. - History of Current Complaint Chief Complaint: EDNeckComplaint Stated Complaint: NECK PAIN COMING FROM Time Seen by Provider: 03/13/17 12:06 Hx Obtained From: Patient, Family/Instrument Assembler - Timing: Constant, Lasting Days - 2 days Onset/Duration: Sudden Onset, Started days ago, Still Present Severity Initially: Severe Severity Currently: Severe Pain Intensity: 6 Pain Scale Used: 0-10 Numeric Character: Sharp Aggravating Factors: Movement Alleviating Factors: Other: - rest Associated Signs & Symptoms: Positive: Fever - 99 F, Nuchal Rigity. Negative: Swelling, Redness, Bruising, Weakness, Headache, Paresthesia - Allergies/Home Medications Allergies/Adverse Reactions: Allergies Allergy/AdvReac Type Severity Reaction Status Date / Time Digoxin Allergy Mild Joint Pain Verified 03/13/17 10:55 Ampicillin Allergy Vomiting Verified 03/13/17 10:55 Levofloxacin [From Levaquin] Allergy "affects Verified 03/13/17 10:55 tendons" betablockers Allergy Mild See Comment Uncoded 03/13/17 10:55 Home Medications: Home Medications Diltiazem HCl Coated Beads [Cartia Xt] 240 mg PO QAM 03/13/17 [History Confirmed 03/13/17] Docusate CAP* [Colace Cap*] 100 mg PO BID PRN 03/13/17 [History Confirmed ] Dtrefgzjdnd-Hqfvpzjgpad-Ltg C- [Glucosamine Chondroitin C] 2 cap PO QPM [History Confirmed 03/13/17] Multivitamins/Minerals TAB* [Theragran/minerals TAB*] 1 tab PO DAILY 03/13/17 [ History Confirmed 03/13/17] Nasal Wash (NF) [Alkalol (NF)] 1 dose BOTH NARES BID 03/13/17 [History Confirmed 03/13/17] PMH/Surg Hx/FS Hx/Imm Hx Endocrine/Hematology History: Denies: Hx Diabetes Cardiovascular History: Reports: Hx Angina - Hx OF CHILD, SO Sx SINCE AGE 25 , Other Cardiovascular Problems/Disorders - MITRAL VALVE DISORDER Denies: Hx Coronary Artery Disease, Hx Hypercholesterolemia, Hx Hypertension , Hx Myocardial Infarction, Hx Valvular Heart Disease Respiratory History: Reports: Hx Asthma - as a child, Other Respiratory Problems /Disorders - chronic rhinitis Musculoskeletal History: Reports: Hx Arthritis - RIGHT HIP, Hx Bursitis - RT LEG , Hx Tendonitis - RT LEG Comment Only: Other Musculoskeletal History - "multiple tendon problems" Sensory History: Reports: Hx Cataracts - BILATERAL, Hx Contacts or Glasses - GLASSES, Hx Hearing Aid - BILATERAL Opthamlomology History: Reports: Hx Cataracts - BILATERAL, Hx Contacts or Glasses - GLASSES Neurological History: Reports: Other Neuro Impairments/Disorders - Hx OF trigeminal neuralgia right jaw, IN REMISSION NOW - Surgical History Surgery Procedure, Year, and Place: YASIR Lombardo tonsillectomy. 2010 RT EYE CATARACT [facility]. Right Total Hip Replacement 12/12/16 Hx Anesthesia Reactions: No Infectious Disease History: No Infectious Disease History: Reports: Hx Shingles Denies: Hx Clostridium Difficile, Hx Hepatitis, Hx Human Immunodeficiency Virus (HIV), Hx of Known/Suspected MRSA, Hx Tuberculosis, Hx Known/Suspected VRE , Hx Known/Suspected VRSA, History Other Infectious Disease, Traveled Outside the [place] in Last 30 Days - Family History Known Family History: Negative: Hypertension, Diabetes - Social History Alcohol Use: Rare Alcohol Amount: 1-2 GLASSES WINE EVERY FEW MONTHS Substance Use Type: Reports: None Smoking Status (MU): Never Smoked Tobacco Have You Smoked in the Last Year: No Review of Systems Positive: Fever, Chills Negative: Erythema Positive: Sore Throat, Other - difficulty swallowing Positive: Chest Pain Positive: Other - dyspnea. Negative: Shortness Of Breath, Cough Negative: Abdominal Pain, Vomiting, Nausea Negative: dysuria, hematuria Musculoskeletal: Other - nuchal rigidity Positive: Decreased ROM. Negative: Myalgia, Edema Negative: Rash Neurological: Other - negative dizziness, tingling and numbness in UE All Other Systems Reviewed And Are Negative: Yes Physical Exam - Summary Physical Exam Summary: Constitutional: Well-developed, Well-nourished, Alert. (-) Distressed Skin: Warm, Dry HENT: Normocephalic; Atraumatic Eyes: Conjunctiva normal Neck: Nuchal rigidity. (-) JVD, (-) Stridor, (-) Tracheal deviation Cardio: Rhythm regular, rate normal, Heart sounds normal; Intact distal pulses; The pedal pulses are 2+ and symmetric. Radial pulses are 2+ and symmetric. (-) Murmur Pulmonary/Chest wall: Effort normal. (-) Respiratory distress, (-) Wheezes, (-) Rales Abd: Soft, (-) Tenderness, (-) Distension, (-) Guarding, (-) Rebound Musculoskeletal: (-) Edema Lymph: (-) Cervical adenopathy Neuro: Alert, Oriented x3 Psych: Mood and affect Normal Triage Information Reviewed: Yes Vital Signs On Initial Exam: Initial Vitals Temp Pulse Resp BP Pulse Ox 98.6 F 93 16 135/76 99 03/13/17 10:56 03/13/17 10:56 03/13/17 10:56 03/13/17 10:56 03/13/17 10:56 Vital Signs Reviewed: Yes Procedures - Lumbar Puncture Position: Lateral Decubitus, Other - upright position Aseptic Technique: Local Anesthesia Anesthesia Used: 1.0% Lido - 4 mL Lumbar Puncture Note: Left lateral decubitus position and upright position for L3-L4 inner space, sterile prep. Due to limited hip flexion, had very limited access to intervertebral spaces. Will call anesthesiologist for consult. Diagnostics - Vital Signs Vital Signs Temp Pulse Resp BP Pulse Ox 03/13/17 10:56 98.6 F 93 16 135/76 99 - Laboratory Result Diagrams: 03/13/17 12:50 03/13/17 12:50 Lab Statement: Any lab studies that have been ordered have been reviewed, and results considered in the medical decision making process. - Radiology CXR Radiology Interpretation Completed By: Radiologist - CXR, per radiologist, reveals no active cardiopulmonary disease. ED physician has reviewed this radiology report and agrees. - CT Brain CT Interpretation Completed By: Radiologist - CT Brain, per radiologist, reveals no discrete mass or hemorrhage is noted. ED physician has reviewed this radiology report and agrees. Neck CT Interpretation Completed By: Radiologist - CT Neck, per radiologist, reveals NO LOCULATED FLUID COLLECTION TO SUGGEST ABSCESS. NO INFLAMMATORY CHANGE OF THE NECK INCLUDING OF THE PHARYNX OR LARYNGEAL APPARATUS. ED physician has reviewed this radiology report and agrees. - EKG 1235 Cardiac Rate: NL EKG Rhythm: Atrial Fibrillation - 80 bpm EKG Interpretation: No STEMI, Inferior T-Wave flattening. Re-Evaluation - Re-Evaluation First Eval Re-Evaluation Time: 13:40 Change: Improved Comment: Pt states some relief of pain with Valium. He is concerned about inability to lay flat during CT. Second Eval Re-Evaluation Time: 17:29 Comment: Pt is angry with anesthesiologist b/c he tipped the bed down very abruptly. Pt is not willing to have another LP today. Understands this is against medical advice. Pt agrees to IV antibiotics and interventional radiology tomorrow. Pt agrees to admission. Neck Course/Dx - Course Assessment/Plan: This patient is an 81 year old M presenting from [facility] to [facility] accompanied by with a chief complaint of constant sharp neck martinez for the past 2 days. Pt was sent from [facility] to r/o meningitis. Last week, pt states he felt pain in bilat shoulder blades that traveled to neck. Neck pain and stiffness is still present though shoulder pain has resolved. The patient rates the pain 6/10 in severity while at rest. Symptoms aggravated by movement and alleviated by rest. Pt states he attempted to treat pain with aspirin, ibuprofen , oxycodone from prior hip surgery. Patient reports CP, dyspnea, fever (99F), chills, sore throat, and difficulty with swallowing that involves the whole neck. Patient denies tingling and numbness in bilat UE. Per , in the last week and a half pt had a severe cold. Pt denies blood thinners and overly strenuous exercise. Recent PSHx hip replacement. No PSHx back surgery. No PMHx neck problems. Pending labs, EKG, CT Neck, and CXR. An EKG reveals A-fib, 80bpm, No STEMI, Inferior T-Wave flattening. CXR, per radiologist, reveals no active cardiopulmonary disease. CT Neck, per radiologist, reveals NO LOCULATED FLUID COLLECTION TO SUGGEST ABSCESS. NO INFLAMMATORY CHANGE OF THE NECK INCLUDING OF THE PHARYNX OR LARYNGEAL APPARATUS. CT Brain, per radiologist, reveals no discrete mass or hemorrhage is noted. ED physician has reviewed these radiology reports and agrees. [1530] Dr. Nazario (surgery) states pt can't safely have over 95 degrees of hip flexion or will risk hip dislocation. Procedure note for Lumbar Puncture: left lateral decubitus position and upright position, 4 mL 1% Lido, L3-L4 inner space, sterile prep. Due to limited hip flexion had very limited access to intervertebral space. [1556] Dr. Herrera ( anesthesiology) agrees to visit pt in ED. [1604] Dr. Garcia (radiologist) states IR is available tomorrow for the pt if necessary. Re-eval [1729]: 1729. Pt is angry with anesthesiologist b/c he tipped the bed down very abruptly. Pt is not willing to have another LP today. Understands this is against medical advice. Pt agrees to IV antibiotics and interventional radiology tomorrow. Pt agrees to admission. 1820 Dr. Spicer accepts pt for admission. Pt is stable and will be admitted with a dx of nuchal rigidity and meningitis. Pt understands and is agreeable with plan. - Diagnoses Provider Diagnoses: Meningitis, Nuchal rigidity - Physician Notifications Discussed Care Of Patient With: Angélica Nazario - Surgery Time Discussed With Above Provider: 15:30 Instructed by Provider To: Other - states pt can't safely have over 95 degrees of hip flexion or will risk hip dislocation. Discharge - Discharge Plan Condition: Stable Disposition: ADMITTED TO [facility] documentation as recorded by the Edward victoria Nilda accurately reflects the service I personally performed and the decisions made by de, Brent Blair MD.
[2017-03-14] MEDS: ACYCLOVIR IVPB SCH ×3 (00:59→18:11)
[2017-03-14] MEDS: NS 0.9% IVPB SCH ×3 (00:59→18:11)
[2017-03-14] MEDS: Vancomycin(*) 750 MG in NS 0.9% 250 ML* 250 ML IVPB SCH ×3 (02:18→18:11)
--- NOTE | 2017-03-14 02:21 | HP ---
CC: Dr. Crespo * HISTORY AND PHYSICAL: DATE OF ADMISSION: 03/13/17 PRIMARY CARE PROVIDER: Dr. Crespo. ATTENDING PHYSICIAN WHILE IN THE HOSPITAL: Dr. Rick Moe * (report dictated by Bong Taylor NP) CHIEF COMPLAINT: Neck pain. HISTORY OF PRESENT ILLNESS: Mr. Mason is an 81-year-old male patient. He has a history of AFib, mitral regurgitation, hyperlipidemia, BPH, GERD, and asthma. He comes in today stating that he noticed earlier last week and then into the week before the end of February, he started having URI symptoms. He had sore throat, runny nose, cough. It was quite severe. It lasted for several days. He was able to get over the cold. He took xrqu-osy-ajfpglf medications. He was feeling better; however, he has noted over the weekend, he has had worsening neck pain. He says his neck has been very stiff. He has really has not been able to move the neck. He has had low-grade fevers, nothing over 101. He has not had any trouble with his hands. He has not had any numbness or tingling in his upper extremities. No weakness in his upper extremities was reported and no weakness in his lower extremities. He says that he has not had any chest pain, no hip pain. His biggest complaint is he has been having neck pain and his neck has been feeling very stiff. He denies having any headache, no photophobia. He says that the discomfort was not getting any better, so he came into the ED today. There have been no reports of recent sick contacts, but he does have recent URI symptoms. He denies having any chest pain, shortness of breath. No nausea or vomiting. He denied having any again fevers and he denies having any weakness or any confusion. He was concerned because of the recent URI symptoms and now having neck pain, he wanted to make sure he was not getting an infection and he denied having any recent trauma to the neck. He was evaluated by Dr. Blair. It was noted that his CRP and ESR are elevated. They were unsuccessful in completing the spinal tap, so we were asked to evaluate for admission. PAST MEDICAL HISTORY: Significant for: 1. AFib. 2. Mitral regurg. 3. Hyperlipidemia. 4. BPH. 5. GERD. 6. Asthma as a child. PAST SURGICAL HISTORY: 1. He has had a tonsillectomy. 2. He has had a right total hip replacement. 3. He has had cataracts. MEDICATIONS: His home meds according to the list that was provided include: 1. Afrin 1 spray both nares daily as needed 2. Nasal wash 1 solution both nares b.i.d. 3. Vicks cough drops 1 lozenge p.o. four times a day as needed. 4. Vicks VapoRub 1 application topically at bedtime as needed. 5. Glycerin 1 spray both nares at bedtime. 6. Vitamin C 500 mg daily. 7. Ponaris 1 dose both nares q.p.m. 8. Glucosamine and chondroitin 1 to 2 capsule p.o. q. p.m. 9. Multivitamin 1 tablet daily. 10. Colace 100 mg p.o. b.i.d. as needed. 11. Diltiazem 240 mg in the morning. ALLERGIES TO MEDICATIONS: Include DIGOXIN, AMPICILLIN, LEVAQUIN, and BETA BLOCKERS. FAMILY HISTORY: His mother had history of CVA, at the age 97. Father had history of COPD. SOCIAL HISTORY: He does not smoke. He does not drink. His surrogate decision maker is his . REVIEW OF SYSTEMS: There is no documented fever. He denied having any significant weight change. There was no double vision. No ear discharge. No sore throat now. He denies any rhinorrhea. No abdominal pain. No nausea, no vomiting. No dysuria. There was no frequency. No seizure, no loss of consciousness. No pruritus and no skin ulcerations. Review of 14 systems completed, all others negative. PHYSICAL EXAMINATION GENERAL: At this time, Mr. Mason is an 81-year-old male patient. He is sitting in the ED stretcher. He does not appear to be in any acute distress. VITAL SIGNS: Blood pressure 131/55, pulse 81, respirations 16, O2 sat 96%, temperature 98.6. HEENT: Head: Atraumatic, normocephalic. Eyes: EOMs are intact. Sclerae are anicteric, not pale. Throat: Oral mucosa appears to be moist. No oropharyngeal erythema. NECK: Noted on exam that his neck, it does appear to be difficult to mobilize particularly with extension, flexion, and rotation. He has significant pain with any type of manipulation of the neck. The cervical spine was palpated. There was no point tenderness along the cervical spine and thoracic spine. At this point, no obvious trauma was noted to the spine. LUNGS: Clear to auscultation bilaterally. No wheezes, rales, or rhonchi. HEART: Sounds S1, S2. Irregularly irregular rate. No murmurs, rubs, or gallops. ABDOMEN: Soft, flat, nontender. Bowel sounds present. EXTREMITIES: Pulses were 2+ throughout. Moves his upper extremities with 5/5 strength. Lower extremity has 5/5 strength. He had no gross obvious focal weakness. NEUROLOGIC: He is awake, alert, and oriented x3. Quarry Plug And Feather Driller are equal. Tongue midline. Vglroy-hf-mqyv intact bilaterally. Ditc-fh-kdox intact bilaterally. No gross focal deficit. SKIN: Intact. DIAGNOSTIC STUDIES/LAB DATA: WBC 9.3, RBC 3.79, hemoglobin 12.1, hematocrit 36 , platelet count of 187, and ESR was 91. His INR was 1.08, his PTT was 31.2. His sodium was 134, potassium 4, chloride 100, bicarb 27, BUN 15, creatinine 1.03, glucose 115, lactate 1, calcium 9.5. Total bili 0.8, AST 19, ALT 10, alk phos 117. Troponin 0.01. CRP was 191. His albumin was 4. Chest x-ray showed no acute pulmonary disease. There was a neck CT with contrast, which showed no loculated fluid collection to suggest abscess. No inflammatory change in the neck including the pharynx or laryngeal arthritis. There was brain CT which showed no discrete mass or hemorrhages noted. EKG shows atrial fibrillation, rate of 80. No ST elevations or T-wave inversions were noted. It was reviewed to the previous EKG, it does appear to be similar. Old medical records were reviewed. ASSESSMENT AND PLAN: Mr. Mason is an 81-year-old male patient coming into the ED today with complaints of neck pain. On evaluation, it was noted he had elevated CRP and ESR, there was concern for possible meningitis. Unfortunately , the patient was unable to have successful tap down here in the ED. We were asked to evaluate for admission. He will be admitted under inpatient status for : 1. Neck discomfort. Again, the etiology is unclear. He is not having any cervical myelopathy at this point that I can see on my exam. I am worried though that he does have a fairly stiff neck and he has elevated CRP and ESR. I think that the spinal tap is appropriate; unfortunately, it needs to be done under IR with Dr. Garcia tomorrow. Apparently, Dr. Blair spoke to the interventional radiologist. We need to touch base again with them in the morning. The CSF studies have been ordered already by Dr. Blair here in the ED. I do think that it is warranted to get an MRI of the cervical spine to make sure there is not an underlying infection or inflammation there or possible abscess. I talked to Dr. Blanco who will try to obtain this tonight as the patient is unsure if he will be able to do this. I did explain to him the importance of this test as it will help us guide his care and that delay may can cause permanent damage if there is an abscess there and he says he medication, which I have given him and he is aware the importance of exam, so we are going to try to get the MRI done tonight. I am going to put him on acyclovir, vanco, and ceftriaxone, and we will follow him closely. I did order him Ativan and morphine prior to the MRI. 2. Atrial fibrillation. Will continue his medicine as prescribed. 3. Mitral regurgitation. Follow with Dr. White. 4. Hyperlipidemia. Continue his current medical regimen. 5. History of benign prostatic hyperplasia. Continue his current meds. 6. Gastroesophageal reflux disease. Continue supportive care. 7. Childhood asthma. Not an active issue. 8. DVT prophylaxis. I am just going to put him on SCDs for the time being given that he had 2 spinal taps done tonight and both unsuccessful and hold off on giving him heparin tomorrow morning, we will hold the heparin subcu, given the fact we are going to be attempting a spinal tap in the morning. 9. Fluids, electrolytes, and nutrition. He can have a regular diet. 10. Code status. He wishes to be do not resuscitate, says he has a MOLST, we will try to get a copy of this. TIME SPENT: On the admission was 60 minutes; greater than half the time was spent oopm-xz-[id number] with the patient obtaining my history and physical, other half the time was spent going over the plan of care with the patient and implementing the plan of care. I did discuss plan of care with my attending, Dr Moe; he is in agreement. BONG TAYLOR, LENCHO [id number]/[facility] #: [id number] GELA
[2017-03-14] MEDS ORDERED: cefTRIAXone(*) 2 GM in D5W 100 ML BAG* 100 ML IVPB SCH (03:00)
[2017-03-14 07:11] LABS: Hematocrit 31 % (42-52); Hemoglobin 10.6 g/dl (14.0-18.0); Mean Corpuscular HGB Conc 34 g/dl (31-36); Mean Corpuscular Hemoglobin 33 pg (27-31); Mean Corpuscular Volume 95 fL (80-94); Mean Platelet Volume 8 um3 (7.4-10.4); Red Blood Count 3.27 10^6/ul (4.0-5.4); Red Cell Distribution Width 14 % (10.5-15)
[2017-03-14 07:32] LABS: BUN/Creatinine Ratio 14.2 (8-20); C Reactive Protein 177.77 mg/L (< 5.00); Calcium 8.3 mg/dL (8.6-10.3); EGFR African American 74.7 (>60); EGFR Non-African American 58.1 (>60); Potassium 3.7 mmol/L (3.5-5.0)
[2017-03-14 08:24] LABS: Erythrocyte Sed Rate 90 mm/Hr (0-40)
[2017-03-14] MEDS: Diltiazem CD CAP* 240 MG PO SCH (09:13)
[2017-03-14] MEDS: Aspirin EC Low Dose* 81 MG TAB.EC PO SCH (10:02)
[2017-03-14] MEDS ORDERED: cefTRIAXone(*) 2 GM in NS 0.9% 100 ML* 100 ML IVPB SCH (15:00)
[2017-03-14] MEDS ORDERED: Vancomycin Trough Check NOTE FOLLOW UP ONE (17:30)
--- NOTE | 2017-03-14 18:17 | PN ---
Subjective Date of Service: 03/14/17 Interval History: Pt is feeling better today. His neck stiffness has improved some. He has no significant neck pain. He never had any headache, photophobia or phonophobia. Objective Active Medications: Acetaminophen (Tylenol Tab*) 650 mg PO Q4H PRN PRN Reason: FEVER/PAIN Aspirin (Aspirin Ec Low Dose*) 81 mg PO DAILY [facility] Last Admin: 03/14/17 10:02 Dose: 81 mg Cyclobenzaprine HCl (Flexeril Tab*) 10 mg PO TID PRN PRN Reason: SPASMS Diltiazem HCl (Cardizem Cd Cap*) 240 mg PO QAM [facility] Last Admin: 03/14/17 09:13 Dose: 240 mg Docusate Sodium (Colace Cap*) 200 mg PO 1999 [facility] Sodium Chloride (Ns 0.9% 1000 Ml*) 1,000 mls @ 75 mls/hr IV PER RATE [facility] Last Admin: 03/14/17 00:06 Dose: 75 mls/hr Morphine Sulfate (Morphine Inj (Syringe)*) 2 mg IV Q2H PRN PRN Reason: PAIN Oxymetazoline HCl (Afrin 0.05% Nasal [place]*) 1 spray BOTH NARES BID PRN PRN Reason: CONGESTION Last Admin: 03/14/17 15:56 Dose: 1 spray Psyllium Hydrophilic Mucilloid (Metamucil Donta*) 1 pkt PO 1999 [facility] Senna (Senokot Tab*) 2 tab PO 1999 [facility] Vital Signs - 8 hr 03/14/17 03/14/17 11:21 14:52 Temperature 98.0 F 98.4 F Pulse Rate 62 76 Respiratory 18 16 Rate Blood Pressure 99/42 123/65 (mmHg) O2 Sat by Pulse 97 99 Oximetry Oxygen Devices in Use Now: None Appearance: Elderly male lying in bed, NAD Eyes: No Scleral Icterus Ears/Nose/Mouth/Throat: Mucous Membranes Moist Respiratory: Symmetrical Chest Expansion and Respiratory Effort, Clear to Auscultation - minimal bibasilar crackles Cardiovascular: NL Sounds; No Murmurs; No JVD, No Edema Abdominal: NL Sounds; No Tenderness; No Distention Extremities: No Clubbing, Cyanosis Skin: No Rash or Ulcers, No Nodules or Sclerosis Neurological: Alert and Oriented x 3 Result Diagrams: 03/14/17 06:51 03/14/17 06:51 Microbiology and Other Data: Microbiology 03/13/17 22:59 Influenza Types A,B Antigen ([facility]ISON) - Final Nasal Specimen received for Influenza A/B Molecular testing Assess/Plan/Problems-Billing Mr Mason is an 81 yo M who has a h/o afib who presented to the ER for c/o neck pain. - Patient Problems (1) Neck pain Current Visit: Yes Status: Acute Code(s): M54.2 - CERVICALGIA SNOMED Code( s): 54680188 Comment: I suspect the patient's neck pain is musculoskeletal. Perhaps a muscle strain from coughing/sneezing as he was doing very frequently in the days prior to admission. Without severe headache or photophobia meningitis seems very unlikely. Will stop Abx and acyclovir and monitor overnight for decompensation or development of fever. Bacterial meningitis seems very unlikely as the patietn does not appear to be ill and he is afebrile. The patient does have markedly elevated ESR and CRP but no clear infection other than possible viral URI. I have recommended the patient have a follow up with his PCP and obtain repeat levels in the next 1-2 weeks. (2) Atrial fibrillation Current Visit: Yes Status: Acute Code(s): I48.91 - UNSPECIFIED ATRIAL FIBRILLATION SNOMED Code(s): 84679576 Comment: He sounded regular on exam. Continue diltiazem. He is not on any anticoagulation. (3) DVT prophylaxis Current Visit: Yes Status: Acute Code(s): MRK3623 - SNOMED Code(s): 485844971 Comment: SQ heparin (4) Full code status Current Visit: Yes Status: Acute Code(s): Z78.9 - OTHER SPECIFIED HEALTH STATUS SNOMED Code(s): 042991377
[2017-03-14] MEDS ORDERED: Senna TAB PO SCH (20:00)
[2017-03-14] MEDS ORDERED: Psyllium PAK PO SCH (20:00)
[2017-03-14] MEDS ORDERED: Docusate CAP* 100 MG PO SCH (20:00)
[2017-03-14] MEDS: Heparin VIAL(*) 5000 UNITS/ML VIAL (FIVE THOUSAND) SUBCUT SCH (20:07)
[2017-03-15 08:30] VITALS: BP 141/73
[2017-03-15] MEDS: Aspirin EC Low Dose* 81 MG TAB.EC PO SCH (08:32)
[2017-03-15] MEDS: Diltiazem CD CAP* 240 MG PO SCH (08:32)
[2017-03-15] MEDS: Heparin VIAL(*) 5000 UNITS/ML VIAL (FIVE THOUSAND) SUBCUT SCH (08:32)
--- NOTE | 2017-03-15 09:13 | PN ---
Subjective Date of Service: 03/15/17 Interval History: Pt is feeling well. His neck discomfort is gone. He states his constipation has resolved. He feels ready to go home. Objective Active Medications: Acetaminophen (Tylenol Tab*) 650 mg PO Q4H PRN PRN Reason: FEVER/PAIN Aspirin (Aspirin Ec Low Dose*) 81 mg PO DAILY [facility] Last Admin: 03/15/17 08:32 Dose: 81 mg Cyclobenzaprine HCl (Flexeril Tab*) 10 mg PO TID PRN PRN Reason: SPASMS Diltiazem HCl (Cardizem Cd Cap*) 240 mg PO [facility] Last Admin: 03/15/17 08:32 Dose: 240 mg Docusate Sodium (Colace Cap*) 200 mg PO 1999 [facility] Last Admin: 03/14/17 20:04 Dose: 200 mg Heparin Sodium (Porcine) (Heparin Vial(*)) 5,000 units SUBCUT Q12HR [facility] Last Admin: 03/15/17 08:32 Dose: Not Given Sodium Chloride (Ns 0.9% 1000 Ml*) 1,000 mls @ 75 mls/hr IV PER RATE [facility] Last Admin: 03/14/17 00:06 Dose: 75 mls/hr Morphine Sulfate (Morphine Inj (Syringe)*) 2 mg IV Q2H PRN PRN Reason: PAIN Oxymetazoline HCl (Afrin 0.05% Nasal Levels*) 1 spray BOTH NARES BID PRN PRN Reason: CONGESTION Last Admin: 03/14/17 15:56 Dose: 1 spray Psyllium Hydrophilic Mucilloid (Metamucil Donta*) 1 pkt PO 1999 [facility] Last Admin: 03/14/17 20:04 Dose: 1 pkt Senna (Senokot Tab*) 2 tab PO 1999 [facility] Last Admin: 03/14/17 20:04 Dose: 2 tab Vital Signs - 8 hr 03/15/17 03/15/17 03/15/17 03:27 03:45 08:00 Temperature 97.9 F Pulse Rate 76 Respiratory 18 16 Rate Blood Pressure 129/62 (mmHg) O2 Sat by Pulse 97 96 97 Oximetry 03/15/17 08:04 Temperature Pulse Rate 83 Respiratory 16 Rate Blood Pressure 141/73 (mmHg) O2 Sat by Pulse 97 Oximetry Oxygen Devices in Use Now: None Appearance: Elderly male sitting up on the edge of the bed, eating breakfast, NAD Eyes: No Scleral Icterus Ears/Nose/Mouth/Throat: Mucous Membranes Moist Respiratory: Symmetrical Chest Expansion and Respiratory Effort, Clear to Auscultation Cardiovascular: NL Sounds; No Murmurs; No JVD, No Edema, - - irregularly irregular Abdominal: NL Sounds; No Tenderness; No Distention Extremities: No Clubbing, Cyanosis Skin: No Rash or Ulcers, No Nodules or Sclerosis Neurological: Alert and Oriented x 3 Result Diagrams: 03/14/17 06:51 03/14/17 06:51 Microbiology and Other Data: Microbiology 03/13/17 22:59 Influenza Types A,B Antigen ([facility]) - Final Nasal Specimen received for Influenza A/B Molecular testing Assess/Plan/Problems-Billing Mr Mason is an 81 yo M who has a h/o afib who presented to the ER for c/o neck pain. - Patient Problems (1) Neck pain Current Visit: Yes Status: Acute Code(s): M54.2 - CERVICALGIA SNOMED Code( s): 75966625 Comment: I suspect the patient's neck pain is musculoskeletal. Perhaps a muscle strain from coughing/sneezing as he was doing very frequently in the days prior to admission. The patient was afebrile overnight with no worsening of his symptoms despite being off the Abx and acyclovir. The patient will continue to monitor his symptoms and if he develops fever, severe headache or any other concerning issues he will return to the ER to be evaluated. Follow up ESR and CRP next week should be obtained to ensure these are falling. (2) Atrial fibrillation Current Visit: Yes Status: Acute Code(s): I48.91 - UNSPECIFIED ATRIAL FIBRILLATION SNOMED Code(s): 12413664 Comment: Irregular on exam but controlled. Continue diltiazem. He is not on any anticoagulation. (3) DVT prophylaxis Current Visit: Yes Status: Acute Code(s): VKP8773 - SNOMED Code(s): 665110567 Comment: SQ heparin (4) Full code status Current Visit: Yes Status: Acute Code(s): Z78.9 - OTHER SPECIFIED HEALTH STATUS SNOMED Code(s): 974778560 Status and Disposition: d/c home
--- NOTE | 2017-03-15 10:38 | DS ---
CC: Dr. Crespo * DATE OF ADMISSION: 03/13/2017. DATE OF DISCHARGE: 03/15/2017. PRIMARY CARE PHYSICIAN: Dr. Crespo. PRINCIPAL DIAGNOSES: 1. Neck stiffness and pain - likely musculoskeletal. 2. Elevated ESR and CRP of unclear etiology. SECONDARY DIAGNOSES: 1. Atrial fibrillation. 2. Chronic rhinitis. 3. Atrial fibrillation. DISCHARGE MEDICATIONS: 1. Aspirin 81 mg p.o. daily. 2. Afrin one spray to both nostrils daily prn congestion. 3. Nasal wash one spray to both nostrils twice daily. 4. Vicks cough drops one lozenge p.o. four times daily prn cough. 5. Vicks VapoRub one application topically at bedtime prn congestion. 6. Glycerin spray one spray to both nostrils at bedtime. 7. Ascorbic acid 500 mg p.o. daily. 8. Ponaris one spray to both nostrils at bedtime. 9. Glucosamine Chondroitin plus C two caps p.o. at bedtime. 10. Multivitamin one tab p.o. daily. 11. Colace 100 mg p.o. b.i.d. prn constipation. 12. Cartia XT 240 mg p.o. daily. 13. Cyclobenzaprine 10 mg p.o. t.i.d. prn spasm. HOSPITAL COURSE: Mr. Mason is an 81-year-old male who presented to the emergency room on 03/13/2017 with complaints of neck pain and low grade fever. The patient had been having URI symptoms for a few days prior to admission. He described this as a bad cold. He had been coughing and sneezing significantly over the days prior to his admission. The patient had been having what he described as a fever; however, he states nothing over 100 degrees. Most of the time his fever was around 99.0. The patient presented to the emergency room for the neck pain and there was concern for meningitis; therefore, three attempts at lumbar puncture were undertaken. Unfortunately, these were all unsuccessful. The patient was admitted and maintained on IV antibiotics and IV Acyclovir. The day after admission, the patient was feeling much improved. His neck stiffness had improved. The patient never complained of any headache or photophobia. As the patient had no headache whatsoever and just the neck stiffness, which could be attributed to musculoskeletal discomfort from coughing and sneezing frequently from the days prior to admission, the antibiotics and Acyclovir were stopped. My suspicion is the patient does not have meningitis. The patient clearly does not have any signs of bacterial meningitis as he is not acutely illness. If this were a viral meningitis, this too seems unlikely as he had no headache or photophobia. The patient was monitored overnight after discontinuing the antibiotics and Acyclovir. He had no change in his vital sign symptoms and he did not develop a fever. At this point, it is felt that the patient can be discharged home. On admission, the patient was found to have a markedly elevated ESR and CRP. The etiology behind this is not completely clear. The patient, as above, did have a significant URI prior to his admission to the hospital, so perhaps they are elevated related to that. I have recommended to the patient that he have these labs rechecked in the next one to two weeks with his primary care provider. The patient has been instructed to follow-up with his primary care provider early next week. Additionally, the patient has been instructed to return to the emergency room if he develops a severe head-ache, fever over 100, or any other concerning symptoms. FOLLOW-UP CONCERNS: The patient is being discharged home today, 03/15/2017. He is to follow-up with Dr. Crespo in the next four to seven days. ACTIVITY LEVEL: As tolerated. DIET: Regular. CONDITION ON DISCHARGE: Stable. Thirty-five minutes were spent discharging this patient. [id number]/[facility] #: [id number] GELA
== END 2017-03-15 09:45 | disposition home or self-care (01) ==
LOC: ED 10:52 → MED 18:47
PROVIDERS: ADMIT Internal Medicine; ATTEND Hospitalist
DX: M54.2 Cervicalgia (principal); M43.6 Torticollis; I48.91 Unspecified atrial fibrillation; J31.0 Chronic rhinitis; E78.5 Hyperlipidemia, unspecified; N40.0 Benign prostatic hyperplasia without lower urinary tract symptoms; I34.0 Nonrheumatic mitral (valve) insufficiency; J45.909 Unspecified asthma, uncomplicated; K21.9 Gastro-esophageal reflux disease without esophagitis; Z79.82 Long term (current) use of aspirin; Z79.899 Other long term (current) drug therapy; Z88.1 Allergy status to other antibiotic agents; Z88.8 Allergy status to other drugs, medicaments and biological substances
CPT/HCPCS: 36415; 70450; 70491; 71010; 72141; 80048; 80053; 81003; 83605; 84484; 85025; 85610; 85652; 85730; 86140; 87040; 87502; 93005; 96365; 96366; 96367; 96375; 96376; 99285; A9270-GY; G0378; J0133; J0696; J1885; J2060; J2270; J2405; J3370; Q9967